=== PATIENT | male | born 1990 | race Caucasian/White ===

== ENCOUNTER 2017-12-25 13:21 | Emergency (ER) | payer BC ==
[2017-12-25] MEDS ORDERED: IBUPROFEN 200 MG TAB PO ONE (13:56)
[2017-12-25] MEDS ORDERED: traMADol HCL 50 MG TAB PO ONE (13:56)
[2017-12-25] MEDS ORDERED: TETANUS,DIPHTHERIA,PERTUSSIS 1 EA SYG IM ONE (13:56)
--- NOTE | 2017-12-25 14:00 | ED.PDOC ---
History of Present Illness - General Chief Complaint: Laceration Stated Complaint: laceration to the left thumb Time Seen by Provider: 12/25/17 13:56 Source: patient - History of Present Illness Initial Comments: PT REPORTS SUSTAINING LACERATION TO THE LEFT THUMB ON A TABLE SAW JUST PRIOR TO ARRIVAL. Timing/Duration: just prior to arrival Severity: moderate Location: hands Improving Factors: immobilization Worsening Factors: movement Associated Symptoms: denies symptoms Allergies/Adverse Reactions: Allergies NO KNOWN ALLERGY Allergy (Verified 12/25/17 13:44) Home Medications: Ambulatory Orders Ibuprofen 800 mg PO Q8HR PRN #30 tab 12/25/17 Tramadol-Acetaminophen [Ultracet] 1 - 2 tab PO Q6HR PRN #30 tab 12/25/17 Review of Systems - Review of Systems Constitutional: Denies: chills, fever Cardiology: Denies: palpitations, syncope Gastrointestinal/Abdominal: Denies: nausea, vomiting Musculoskeletal: Denies: joint pain, joint swelling Skin: Denies: dryness, lesions Physical Exam - Physical Exam General Appearance: Alert, Comfortable, Well Developed, Well Groomed, Well Hydrated Eyes, Ears, Nose, Throat Exam: normal ENT inspection Neck: normal inspection Respiratory: no respiratory distress Extremity: normal range of motion, non-tender, normal inspection Neurologic: alert, normal mood/affect, oriented x 3 Skin Exam: warm/dry, normal color Skin Problem Location: upper extremities Skin Character: other - AVULSION LACERATION TO THE LEFT THUMB PAD, NO EXPOSED BONE OR MUSCLE. NEURO/VASCULAR INTACT, TENDON FUNCTION INTACT. Departure - Departure Clinical Impression: Laceration of left thumb Time of Disposition: 14:01 Disposition: Discharge to Home or Self Care Condition: Good Departure Forms: ED Discharge - Pt. Copy, Patient Portal Self Enrollment Instructions: DI for Avulsion Laceration (Not Requiring Sutures) Diet: resume usual diet Activity: increase activity as tolerated Referrals: Abran Helton MD [Primary Care Provider] - 1-2 Weeks Prescriptions: Tramadol-Acetaminophen [Ultracet] 1 - 2 tab PO Q6HR PRN #30 tab PRN Reason: Pain Ibuprofen 800 mg PO Q8HR PRN #30 tab PRN Reason: Pain Home Medications: Ambulatory Orders Ibuprofen 800 mg PO Q8HR PRN #30 tab 12/25/17 Tramadol-Acetaminophen [Ultracet] 1 - 2 tab PO Q6HR PRN #30 tab 12/25/17
[2017-12-25] MEDS ORDERED: NEOMYCIN-BACITRACIN-POLYMYXIN 0.9 GM UD TOP ONE (14:08)
[2017-12-25 14:11] VITALS: BP 106/62; TEMP 98.2; O2SAT 98
== END 2017-12-25 14:23 | disposition home or self-care (01) ==
LOC: ER 13:21
DX: S61.012A Laceration without foreign body of left thumb without damage to nail, initial encounter (principal); Z23 Encounter for immunization; W29.8XXA Contact with other powered hand tools and household machinery, initial encounter; Y92.9 Unspecified place or not applicable